=== PATIENT | female | born 1965 | race Caucasian/White ===

== ENCOUNTER 2020-12-24 23:01 | Observation (INO) | payer OTHER, SELFPAY ==
--- NOTE | ~2020-12-24 | CT_ITS ---
EXAMINATION: CT abdomen pelvis w con EXAM DATE: 12/25/2020 01:32 INDICATION: Obstructed hernia. Nausea and vomiting. TECHNIQUE: Spiral CT of the abdomen and pelvis was performed following intravenous injection of 100 m L Omnipaque 350. Axial, coronal and sagittal images of the abdomen and pelvis were reviewed. The do se-length product (DLP) for this examination was 1437.52 mGy-cm. The exposure was tailored according to patient size (auto mA exposure control), and iterative reconstruction (ASIR) was used as addition al dose reduction technique. Comparison is made to prior examination from 11/06/2010, 01/21/2011. FINDINGS: There is right liver lobe lesion measuring 2.3 cm, probably a hemangioma, or other benign h istology. This was present on CT in 2010. Several other liver granulomas. Pancreatic cystic lesion pr obably pseudocyst has decreased in size from 4.7 cm to less than 1 cm. Mild adrenal gland nodularity likely adenomas unchanged. Gallbladder is unremarkable. No biliary obstruction. Portal and splenic veins are patent. Kidneys enhance symmetrically. There is no hydronephrosis. The uterus and ovar ies are unremarkable, no adnexal mass. The bladder is unremarkable. There is no retroperitoneal or pelvic lymphadenopathy. There is mild scattered arteriosclerotic disease. The appendix is normal. There is moderate descending and sigmoid colonic diverticulosis. There is no adjacent inflammatory change to suggest diverticulitis. The stomach and small bowel are unremarkable . There is expected amount of colonic stool. No free intraperitoneal gas. The heart is normal in size. There are no pericardial or pleural effusions. Improvement in bibasilar tree-in-bud pattern, was present back in 2010 indicating this is chronic. Co uld be chronic hypersensitivity pneumonitis, inflammatory or infectious process. Pleural-based 6 mm n odule unchanged, granuloma. There are no osteoblastic or osteolytic lesions identified. IMPRESSION: 1. Interval development of large umbilical fat-containing hernia with mild inflammation. 2. Benign liver, pancreatic, adrenal lesions. 3. Moderate colonic diverticulosis. 4. Chronic nonspecific pneumonitis. Reviewed, dictated and finalized at location A. IMPRESSION: 1. Interval development of large umbilical fat-containing hernia with mild inf lammation. 2. Benign liver, pancreatic, adrenal lesions. 3. Moderate colonic diverticulosis. 4. Chronic nonspecific pneumonitis.
[2020-12-24 23:05] VITALS: BP 146/76; PULSE 78; RESP 18; TEMP 36.3; O2SAT 95
--- NOTE | 2020-12-24 23:10 | ECG_ITS ---
Measurements Intervals [place] Rate: 75 P: 58 MI: 194 QRS: 42 QRSD: 102 T: 41 QT: 397 QTc: 444 Interpretive Statements SINUS RHYTHM NORMAL ECG Electronically Signed On 12-25-2020 7:09:58 CDT by Shakeel Thompson D.O.
[2020-12-24 23:39] LABS: Basophils Absolute Auto 0.1 K/mm3 (0.0-0.1); Basophils Percent Auto 0.6 % (0.2-1.2); Eosinophils Absolute Auto 0.2 K/mm3 (0-0.3); Hemoglobin 15.6 g/dL (12.0-15.0); Immature Granulocyte Absolute 0.03 K/mm3 (0.00-0.031); Immature Granulocyte Percent A 0.2 % (0-0.5); Lymphocytes Absolute Auto 2.55 K/mm3 (0.9-3.2); Lymphocytes Percent Auto 21.2 % (18.3-44.2); Mean Corpuscular HGB Conc 32.5 g/dl (32-36); Mean Corpuscular Hemoglobin 28.7 pg (26-34); Mean Corpuscular Volume 88.4 fl (80-100); Mean Platelet Volume 9.1 fl (7.4-10.4); Monocytes Absolute Auto 0.8 K/mm3 (0.1-0.6); Monocytes Percent Auto 6.6 % (2.6-8.5); Neutrophils Absolute Auto 8.4 K/mm3 (1.3-6.7); Neutrophils Percent Auto 69.4 % (45.5-73.1); Platelet Count Result 327 k/mm3 (150-375); Red Blood Count 5.43 M/mm3 (4.2-5.4); Red Cell Distribution Width 13.1 % (11.5-14.5)
[2020-12-24 23:51] LABS: Alanine Aminotransferase 20 U/L (4-35); Albumin Level 4.3 g/dL (3.5-5.1); Alkaline Phosphatase 114 U/L (38-126); Anion Gap 11 mmol/L (8-16); Aspartate Amino Transferase 24 U/L (14-36); Bilirubin,Total 0.4 mg/dL (0.2-1.3); Blood Urea Nitrogen 12 mg/dL (7-17); Calcium 9.8 mg/dL (8.4-10.2); Carbon Dioxide 24 mmol/L (22-30); Chloride 102 mmol/L (98-107); Estimated CRCL calculation 107 ml/min; Estimated Glomerular Filt Rate > 60; Glucose 151 mg/dL (65-105); Lipase 136 U/L (23-300); Potassium 3.6 mmol/L (3.4-5.0); Sodium 137 mmol/L (137-145)
[2020-12-25 01:10] LABS: Add Urine Microscopic? YES; Appearance Urine Clear (Clear); Bacteria Urine Trace /hpf; Bilirubin Urine Negative (Negative); Blood Urine Negative (Negative); Color Urine Yellow (Yellow); Glucose Urine UA Negative (Negative); Ketones Urine 1+ mg/dL (Negative); Leukocyte Esterase Ur Negative LEU/UL (Negative); Mucus Urine Moderate /lpf; Nitrate Urine Negative (Negative); Protein Urine 1+ mg/dL (Negative); RBC Urine 0-2 /hpf (0-2); Specific Grav Ur 1.028 (1.001-1.035); Squamous Epithelial Cell Urine Few /hpf (Few); WBC Urine 0-3 /hpf
[2020-12-25] MEDS: SODIUM CHLORIDE 0.9% IV 1,000 ML 150 ML IV CONT (01:14)
[2020-12-25] MEDS: ONDANSETRON INJ 4 MG/2 ML VIAL IV PUSH (01:15)
[2020-12-25] MEDS: MORPHINE SULFATE (*CRX) 4 MG/ML INJ IV PUSH (01:17)
[2020-12-25 01:18] VITALS: BP 134/81; PULSE 74; RESP 16; O2SAT 95
--- NOTE | 2020-12-25 02:33 | ED.ABDPAIN ---
HPI - Abdominal Pain General Chief Complaint: Abdominal Pain Stated Complaint: hernia pain, n/v Time Seen by Provider: 12/25/20 00:37 Source: patient and family Mode of arrival: ambulatory Limitations: no limitations History of Present Illness HPI narrative: 55-year-old with a history of hypertension, umbilical hernia here with complaints of increased amount of lower abdominal pain since this afternoon. She denies any nausea and vomiting. No history of fever or chills. She states that she is feeling shaky inside. MD elicited complaint: abdominal pain Pertinent past history: none Pain Consistency: constant Location: periumbilical Severity: moderate Quality: aching Radiation: none Migration to: no migration Exacerbating factors: nothing Relieving factors: nothing Related Data Allergies Allergy/AdvReac Type Severity Reaction Status Date / Time No Known Allergies Allergy Unknown Verified 11/08/10 08:13 DENIES ANY MEDICATION,FOOD Allergy Mild Uncoded 05/15/04 18:49 OR LATEX ALLERGIES Review of Systems Review of Systems: All systems reviewed & are unremarkable except as noted in HPI and below Constitutional: Constitutional: Reports no additional constitutional complaints Eyes: Eyes: Reports no additional eye complaints ENT: Reports system reviewed and no additional complaints, except as documented Cardiovascular: Cardiovascular: Reports no additional cardiovascular complaints Respiratory: Respiratory: Reports no additional respiratory complaints Gastrointestinal: Gastrointestinal: Reports as per HPI Musculoskeletal: Musculoskeletal: Reports no additional musculoskeletal complaints Integumentary/Breasts: Skin/Breast: Reports system reviewed and no additional complaints, except as docu PMFSH Family History Family History Other Cerebrovascular accident Diabetes mellitus Family history of malignant neoplasm Hypertension Social History Social History Smoking status: Current every day smoker Alcohol intake: current Gender identity (if verbalized by the patient): Female Exam Narrative: Exam Narrative: GENERAL: Well-appearing, well-nourished, and in no acute distress. HEAD: Normocephalic, atraumatic. EYES: PERRLA and EOMI.. NECK: Supple. CHEST: Clear to auscultation. No respiratory distress. HEART: Regular rate and rhythm. No murmur heard. Normal peripheral pulses. ABDOMEN: Soft, tender, nondistended, large umbilical hernia present try to reduce it was able to go partially down. normal active bowel sounds. EXTREMITIES: Normal range of motion. No edema. SKIN: Warm, dry, no rash. NEURO: No focal deficits. Alert and oriented x3. PSYCH: Normal mood and affect. Course Course Emergency Course: I have reexamined the patient hernia still present however seems to be slightly reducible but not completely reducible. I discussed lab and CT findings with the patient as well as with Dr. Marin who agreed to admit the patient. Vital Signs Vital signs: Vital Signs Temperature 36.3 C L 12/24/20 23:05 Pulse Rate 78 12/24/20 23:05 Respiratory Rate 18 12/24/20 23:05 Blood Pressure 146/76 H 12/24/20 23:05 Pulse Oximetry 95 12/24/20 23:05 Temperature 36.3 C L 12/24/20 23:05 Pulse Rate 74 12/25/20 01:18 Respiratory Rate 16 12/25/20 01:18 Blood Pressure 134/81 12/25/20 01:18 Pulse Oximetry 95 12/25/20 01:18 MDM - Abdominal Pain Lab Data Result diagrams: 12/24/20 23:22 12/24/20 23:22 Labs: Lab Results 12/24/20 12/24/20 12/25/20 Range/Units 23:22 23:22 00:45 WBC 12.0 H (4.5-10.0) K/mm3 RBC 5.43 H (4.2-5.4) M/mm3 Hgb 15.6 H (12.0-15.0) g/dL Hct 48.0 H (37.0-47.0) % MCV 88.4 (80-100) fl MCH 28.7 (26-34) pg MCHC 32.5 (32-36) g/dl RDW 13.1 (11.5-14.5) % Plt Count 327 (150-375) k/mm3 MPV 9.
[2020-12-25 02:40] VITALS: BP 131/79; PULSE 74; RESP 16; O2SAT 94
[2020-12-25 03:20] LABS: Lactic Acid Reflex 1.3 mmol/L (0.7-2.1)
[2020-12-25] MEDS: SODIUM CHLORIDE 0.9% IV 1,000 ML 125 ML IV CONT (04:47)
[2020-12-25 04:48] VITALS: BMI 54.8
[2020-12-25 04:50] VITALS: BP 104/53; PULSE 73; RESP 20; TEMP 36.3; O2SAT 96
--- NOTE | 2020-12-25 04:50 | ADMGEN ---
This patient, Katey Heath, was admitted to [facility] Surg Room 316-01. Patient/family oriented to hospital policies and general routines including ID bracelet, bed and alarms, visiting hours, pain management, procedures, bathroom and other care routines, personal items, smoking policy, room service/diet, and visiting hours. Information on how to activate the Rapid Response Team has been discussed. Patient/Family are encouraged to report perceived risks to care and to ask questions if they do not understand what they are told or what they should do.
[2020-12-25 05:44] VITALS: BP 108/55; PULSE 76; RESP 20; TEMP 36.1; O2SAT 97
[2020-12-25 08:00] VITALS: PULSE 76; RESP 20; O2SAT 97
--- NOTE | 2020-12-25 10:45 | PM.IMHP ---
H&P: HPI History of Present Illness Date/Time: 12/25/20 10:45 Chief Complaint: abdominal pain Narrative: Pt is a 55 y/o F presenting to ED c/o supraumbilical bulging and pain over last few days. Pt reports she has known hernia that has not ever really bothered her. Pt reports over last few days area has become much larger and become tender. Pt reports some N/V and poor appetite. Pt reports she probably had a panic attack and this made this episode much worse. Today, pt reports symptoms are largely resolved. Review of Systems Constitutional: Constitutional: Denies chills, Reports fatigue, Denies fever(s), Denies headache(s), Reports lethargy, Reports malaise, Reports poor appetite, Reports weakness, Denies weight gain and Denies weight loss Eyes: Eyes: Reports no additional eye complaints ENT: Reports system reviewed and no additional complaints, except as documented Cardiovascular: Cardiovascular: Reports no additional cardiovascular complaints Respiratory: Respiratory: Reports no additional respiratory complaints Gastrointestinal: Gastrointestinal: Reports as per HPI, Reports abdominal pain, Reports bloating, Denies change in stool character, Reports nausea and Reports vomiting Genitourinary: Genitourinary: Reports no additional female genitourinary complaints Musculoskeletal: Musculoskeletal: Reports no additional musculoskeletal complaints Integumentary/Breasts: Skin/Breast: Reports system reviewed and no additional complaints, except as docu Neurologic: Reports system reviewed and no additional complaints, except as documented Psychiatric: Psychiatric: Reports no additional psychiatric complaints Endocrine: Endocrine: Reports no additional endocrine complaints Hematologic/Lymphatic: Hematologic/Lymphatic: Reports no additional hematologic/lymphatic complaints Allergic/Immunologic: Allergic/Immunologic: Reports no additional allergic/immunologic complaints [facility], [facility] Family History Family History Father COPD (chronic obstructive pulmonary disease) Family history of malignant neoplasm Hernia Cerebrovascular accident Hypertension Mother Diabetes mellitus Hypertension Social History Social History Smoking packs per day: 0.75 Smoking cigarettes per day: 15.0 Years smoked: 30 Smoking pack-years: 22.50 Smoking status: Current every day smoker Alcohol intake: never Substance use: current Substance use type: marijuana Last use: 12/24/2020 Gender identity (if verbalized by the patient): Female Spiritual care concerns: No Comments PMH - obesity, tobacco abuse PSxH - pt denies any previous abd surgery Meds Home Medications and Allergies Home Medications Medication Instructions Recorded Confirmed Type No Home Medications 12/25/20 12/25/20 History Allergies Allergy/AdvReac Type Severity Reaction Status Date / Time No Known Allergies Allergy Unknown Verified 12/25/20 04:58 Vital Signs Vital Signs - 24 hr 12/24/20 23:05 12/25/20 01:18 12/25/20 02:40 Temperature 36.3 C L Pulse Rate 78 74 74 Respiratory Rate 18 16 16 Blood Pressure 146/76 H 134/81 131/79 Pulse Oximetry 95 95 94 12/25/20 04:50 12/25/20 05:44 12/25/20 08:00 Temperature 36.3 C L 36.1 C L Pulse Rate 73 76 76 Respiratory Rate 20 20 20 Blood Pressure 104/53 L 108/55 L Pulse Oximetry 96 97 97 Exam Const: General: cooperative, comfortable and no acute distress Nutritional Appearance: obese Orientation/consciousness: patient oriented x3 Limitations: no limitations HENMT: Head: normal to inspection, normocephalic and atraumatic Ears: hearing grossly normal bilaterally General nose exam: Normal external nose present Face and sinus: normal facial exam Mouth: Yes Normal oral and palatal mucosa present and Yes moist mucous membranes Eyes: General: appearance normal, both eyes and all
--- NOTE | 2020-12-26 11:45 | P.DS_ITS ---
DS: Admitting Diagnosis Admitting Diagnosis Admitting Diagnosis: incarcerated umbilical hernia DS: Discharge Diagnosis Discharge Diagnosis (1) Incarcerated umbilical hernia: Code(s): K42.0 - Umbilical hernia with obstruction, without gangrene Status: Acute Assessment and Plan: reduced, exam benign, will f/u as outpt to schedule for elective repair, light activity restrictions (2) Morbid obesity due to excess calories: Code(s): E66.01 - Morbid (severe) obesity due to excess calories Status: Acute Assessment and Plan: lifestyle and dietary modifications DS: Summary Hospital Course Reason for hospitalization: incarcerated umbilical hernia Hospital Course: Pt is a 55 y/o F presenting to ED c/o severe abdominal pain and bulging in the periumbilical area. Pt c known UH but reports previously assymptomatic. Pt had CT scan confirmatory of incarcerated UH. Pt admitted to surgical service c plans for possible urgent repair. Upon evaluation, I was able to reduce hernia and pt reports symptoms largely resolved. Pt was able to tolerate diet and have normal bowel fxn. Pt wishes for repair as outpt and will be d/c'd home c instructions for close f/u to schedule repair. Pt advised to cont light activity restrictions. Status at Discharge Functional status at discharge: independent ambulation Overall status at discharge: patient is progressing back to baseline Time Spent with Patient Time attestation: Total time spent providing and/or coordinating discharge services: Time spent: Less than 30 minutes Exam Const: General: cooperative, comfortable and no acute distress Nutritional Appearance: obese Orientation/consciousness: patient oriented x3 Limitatio ns: no limitations Resp: Auscultation: clear to auscultation bilaterally Cardio: Rate: regular rate Rhythm: regular rhythm GI: Inspection: normal to inspection and distended GI Palp: Yes Soft to palpation, Yes Tenderness to palpation present (GI), No Guarding due to palpation present (GI) and No Rigid due to palpation Other: Abd - soft, sl dist, mild TTP in supraumbilical area, palpable hernia now reducible Discharge Plan Discharge Attending physician on discharge: Destinee Marin Consulting providers: Hamilton Barrios Discharging Clinician: Elsie Leblanc Anticipated Discharge Date/Time: 12/25/20 13:58 Patient Disposition: Home, Self-Care Activity: no straining and other - see discharge instructions Diet: regular Discharge Instructions: * Avoid any heavy lifting, pushing, or pulling. * May use an abdominal binder for support while waiting to schedule surgery. * Call the office ([phone]) to schedule a follow-up with Dr. Marin in our office to schedule surgery. * If you develop abdominal pain or firm bulge near umbilicus with pain, please c all the office sooner or go to the ER. Patient Instructions: Antibiotic Form, How to Stop Smoking (DC) Stand Alone Forms: General Discharge Information Follow-up/Referrals: Destinee Marin MD [Physician] - Call for Appointment Discharge Medications: No Action No Home Medications RF: 0 Date of admission: 12/25/20 02:31 Primary Care Provider: PHYSICIAN,[employer] DIRECT[employer] Admitting Provider: Destinee Marin Attending physician on admission: Destinee Marin Condition: Stable
== END 2020-12-25 14:41 | disposition home or self-care (01) ==
LOC: ANHED 12-25 02:39 → ANH3MEDSUR 12-25 03:57
PROVIDERS: Admitting Provider Surgery; Emergency Provider Family Medicine; Visit Provider Surgery
DX: K42.0 Umbilical hernia with obstruction, without gangrene (principal); I10 Essential (primary) hypertension; F17.210 Nicotine dependence, cigarettes, uncomplicated; F12.90 Cannabis use, unspecified, uncomplicated; E66.01 Morbid (severe) obesity due to excess calories; Z68.43 Body mass index [BMI] 50.0-59.9, adult
CPT/HCPCS: 36415; 74177; 80053; 81001; 83605; 83690; 85025; 93005; 96374; 96375; 99285; G0378; G0379; J2270; J2405; J7030; Q9967

== ENCOUNTER → 2021-01-14 01:56 | Outpatient (CLI) | payer OTHER, SELFPAY ==
[2021-01-14 18:16] LABS: SARS-CoV-2 RNA PCR Negative
== END ==
PROVIDERS: Visit Provider Surgery
DX: Z01.812 Encounter for preprocedural laboratory examination (principal); Z20.822 Contact with and (suspected) exposure to COVID-19
CPT/HCPCS: C9803; U0003; U0005

== ENCOUNTER 2021-01-17 00:34 | Day surgery (SDC) | payer OTHER, SELFPAY ==
[2021-01-14 14:16] VITALS: BMI 54.8
[2021-01-17] VITALS (13 sets, daily range): BP systolic 115–148; BP diastolic 73–96; PULSE 68–81; RESP 10–16; TEMP 36.1–36.7; O2SAT 92–100
[2021-01-17] MEDS: ACETAMINOPHEN 500 MG TABLET 1000 MG PO (10:19)
[2021-01-17] MEDS: LACTATED RINGERS 1,000 ML 30 ML IV CONT ×3 (10:30→17:20)
--- NOTE | 2021-01-17 10:32 | WPDANESEPPF ---
Anes - Initial Pre Proc Eval Procedure: Operation Date: 01/17/21 11:30 Proposed Procedures p Robotic Assisted Incarcerated Ventral Hernia With Mesh - Destinee Marin MD Date/Time: 01/17/21 10:32 Surgeon: Destinee Marin MD Pre Op Diagnosis: incarcerated ventral hernia Patient Data Age: 55 Gender: F Height: 1.57 m Weight: 106 kg Allergies Allergy/AdvReac Type Severity Reaction Status Date / Time No Known Allergies Allergy Unknown Verified 01/17/21 10:20 Home Medications Medication Instructions Recorded Confirmed Type No Home Medications 12/25/20 01/17/21 History Patient hx anesthesia problems: none Family hx anesthesia problems: none PMFSH Surgical History Surgical History (Updated 01/17/21 @ 10:46 by Waqas Mao MD) History of section History of cholecystectomy Family History Family History Father COPD (chronic obstructive pulmonary disease) Family history of malignant neoplasm Hernia Cerebrovascular accident Hypertension Mother Diabetes mellitus Hypertension Social History Social History Smoking packs per day: 1 Smoking cigarettes per day: 20.0 Years smoked: 30 Smoking pack-years: 30.00 Smoking status: Current every day smoker Tobacco type: cigarettes Alcohol intake: never Substance use: current Substance use type: marijuana Last use: 01/13/21 Living arrangements: with family Gender identity (if verbalized by the patient): Female Spiritual care concerns: No Anes - Eval Final PreProcedure Day of Procedure 01/17/21 10:32 Patient weight: morbidly obese Heart: regular rate and rhythm Lungs: clear to auscultation Airway: Mallampati scale class II Neurological: alert and oriented Last oral intake: >/= 8 hours ASA classification: III Emergent: no Anesthetic plan: proceed Anesthesia type and monitoring: general ETT and standard monitoring Informed Consent: The patient's anesthetic plan and its attendant risks and benefits were discussed with the patient/family/POA. Questions were solicited and answers provided to the satisfaction of the patient/family/POA.
[2021-01-17] MEDS: KETOROLAC 15 MG/ML VIAL (*BKC) IV PUSH (10:33)
--- NOTE | 2021-01-17 11:40 | WPDHPUPDATE1 ---
History and Physical Update Update Date/Time: 01/17/21 11:40 History and Physical has been reviewed, including an updated exam of the patient. There are NO changes in the patient's condition. Risks, benefits, and alternatives have been discussed and questions answered. Patient agrees to proceed with procedure.
[2021-01-17] MEDS: ceFAZolin 2 GM/D5W 50 ML 2 GM/50 ML BAG IVPB (11:44)
[2021-01-17] MEDS: BUPIVACAINE HCL 0.5% PF 30 ML VIAL INFILTRATE (12:43)
--- NOTE | 2021-01-17 14:07 | W.PM.PROC2 ---
Procedure Note - Detailed Date of Procedure 01/17/21 Pre-op Diagnosis incarcerated ventral hernia Post-op Diagnosis same Procedure Performed robotic assisted incarcerated supraumbilical ventral hernia with mesh Surgeon Destinee Marin MD Anesthesia general Indications 55 y/o F c incarcerated supraumbilical ventral hernia Description of Procedure The patient was taken the operating room placed in the supine position. After adequate induction of general anesthesia, the patient was prepped and draped in normal sterile fashion. A time-out was then done to verify the patient's identity as well as the procedure being performed. I began by making a 5 mm incision in the left upper quadrant. Through this, a Veress needle was placed into the peritoneal cavity and CO2 gas was insufflated. After adequate pneumoperitoneum was achieved, a 5 mm trocar was placed through this incision. I then placed the laparoscope through this trocar site and under direct visualization I placed a 8 mm port in the left mid abdomen as well as an additional 8 mm port in the left lower abdomen. I then moved the camera to the lower port and replaced the 5 mm port with a 12 mm airport. The robot was then docked to the 3 port sites. I then went to the robotic console. I began by identifying the hernia. A moderate-sized incarcerated hernia was noted in the periumbilical region. Using graspers, I was able to reduce this hernia. The hernia was noted to contain a large amount of preperitoneal fat and omentum. Once reduced, I also reduced and dissected out the hernia sac. I then closed the approximately 4 cm defect with 0 strata fix suture. I then placed a 15 x 10 cm symbotex mesh into the abdominal cavity. The Vicryl stitch was placed in the middle of the mesh and brought up centering the mesh over the defect. Once this was done, I used 2 0 V lock suture x 2 to circumferentially suture the mesh to the abdominal. Once the mesh was completely sutured in, I was happy with our tension-free repair. The mesh was noted to have good overlap of the defect. At this point, the robot was undocked and all ports were removed. I then closed the 12 mm port site with an 0 Vicryl [id number] suture at the fascial level. All port sites were then closed with 4 O Monocryl subcuticular suture. The patient tolerated the procedure well, is extubated in the operating room postoperative, OB transferred to the recovery room in stable condition. Implants 15x10 cm Symbotex mesh Estimated Blood Loss 25 Drains No Packing No Pathology none sent Complications No immediate complications Condition stable Disposition PACU
[2021-01-17] MEDS: ONDANSETRON INJ 4 MG/2 ML VIAL IV PUSH (14:53)
[2021-01-17] MEDS: fentaNYL CITRATE INJ (*CRX) 100 MCG/2 ML VIAL 25 MCG IV PUSH ×4 (15:02→15:20)
[2021-01-17] MEDS: HYDROmorphone HCL INJ (*CRX) 1 MG/ML SYR 0.25 MG IV PUSH ×4 (15:53→16:23)
[2021-01-17] MEDS: SCOPOLAMINE 1.5 MG PATCH TRANSDERM (17:08)
[2021-01-17] MEDS: diphenhydrAMINE HCl INJ 50 MG/ML VIAL 25 MG IV PUSH (17:09)
[2021-01-17] MEDS: oxyCODONE HCL (*CRX) 5 MG TAB IR PO (17:38)
== END 2021-01-17 18:36 | disposition home or self-care (01) ==
PROVIDERS: Visit Provider Surgery
PROC: (CPT 49653; principal; 2021-01-17 11:30)
DX: K43.6 Other and unspecified ventral hernia with obstruction, without gangrene (principal); F17.210 Nicotine dependence, cigarettes, uncomplicated; F12.90 Cannabis use, unspecified, uncomplicated; E66.01 Morbid (severe) obesity due to excess calories; Z68.41 Body mass index [BMI] 40.0-44.9, adult
CPT/HCPCS: 49653; S2900; 36415; 86850; 86900; 86901; A9270; C1781; J0330; J0690; J1100; J1170; J1200; J1885; J2250; J2405; J2704; J2710; J3010; J7030; J7120